=== PATIENT | male | born 1955 | race Two or more races ===

== ENCOUNTER 2016-11-06 10:20 | Emergency (ER) | payer MEDICAID, OTHER ==
[~2016-11-06] VITALS: Ht 170.2 cm; Wt 71.7 kg
[2016-11-06] MEDS ORDERED: TETANUS-DIPTH-ACEL PERTUSSIS 0.5ML SYRG IM ONE (12:15)
[2016-11-06 12:55] VITALS: BP 138/70
== END 2016-11-06 13:30 | disposition home or self-care (01) ==
LOC: ER 10:25
DX: S01.81XA Laceration without foreign body of other part of head, initial encounter (principal); R51 Headache; E11.9 Type 2 diabetes mellitus without complications; I10 Essential (primary) hypertension; W01.0XXA Fall on same level from slipping, tripping and stumbling without subsequent striking against object, initial encounter; Y93.89 Activity, other specified; Y99.8 Other external cause status; Y92.89 Other specified places as the place of occurrence of the external cause
CPT/HCPCS: 12011; 70450; 90471; 90715